=== PATIENT | male | born 1980 | race Caucasian/White ===

== ENCOUNTER 2020-11-11 13:37 | Emergency (ER) | payer OTHER ==
[~2020-11-11] VITALS: Ht 188 cm; Wt 102.1 kg
[2020-11-11] MEDS ORDERED: NORCO5 PO ×2 (15:04→15:07)
[2020-11-11] MEDS ORDERED: BACTRIM DS TAB1 EAC1 PO (15:04)
[2020-11-11] MEDS ORDERED: CEPHALEXIN500 MG PO (15:04)
[2020-11-11 15:21] VITALS: BP 139/96
== END 2020-11-11 15:30 | disposition home or self-care (01) ==
LOC: M.ERS 13:37
DX: L02.511 Cutaneous abscess of right hand (principal)